=== PATIENT | male | born 1960 | race Two or more races ===

== ENCOUNTER 2017-04-25 23:15 | Emergency (ER) | payer MEDICAID, OTHER ==
[~2017-04-25] VITALS: Ht 172.7 cm; Wt 108.9 kg
[2017-04-25] MEDS ORDERED: BD INSULIN (23:28)
[2017-04-25] MEDS ORDERED: LANTUS 100 UNITS/ML VIAL (23:28)
[2017-04-26] MEDS ORDERED: HYDROCODONE/APAP 10-325 MG TABLET PO ONE
[2017-04-26] MEDS ORDERED: SULFAMETH/TRIMETH 800/160 MG TABLET PO ONE
--- NOTE | 2017-04-26 00:01 | NUR ---
abcess cleaned and dressed.
--- NOTE | 2017-04-26 00:01 | NUR ---
Patient discharged to home in stable conditon. Written and verbal after care instructions given with RX. instructed to not drive, pt's driving Patient verbalizes understanding of instructions.
[2017-04-26] MEDS ORDERED: HYDROCODONE/APAP 10-325 MG TABLET ONE (00:16)
[2017-04-26] MEDS ORDERED: SULFAMETH/TRIMETH 800/160 MG TABLET ONE (00:16)
== END 2017-04-26 00:06 | disposition home or self-care (01) ==
LOC: ER 23:19
DX: K61.1 Rectal abscess (principal); R07.9 Chest pain, unspecified; E11.9 Type 2 diabetes mellitus without complications; Z79.4 Long term (current) use of insulin